=== PATIENT | female | born 1965 | race Caucasian/White ===

== ENCOUNTER 2023-01-11 11:42 | Emergency (ER) | payer SELFPAY ==
[2023-01-11] MEDS ORDERED: Sodium Chloride 0.9% 10 ML Syringe FLUSH PRN (12:08)
[2023-01-11] MEDS ORDERED: Naloxone 0.4 MG/ML SDV IVPUSH PRN (12:19)
[2023-01-11 12:24] LABS: BASOPHILS ABSOLUTE AUTO 0.01 10^3/uL (0.00-0.10); BASOPHILS PERCENT AUTO 0.2 % (0.0-1.0); EOSINOPHILS ABSOLUTE AUTO 0.23 10^3/uL (0.10-0.30); EOSINOPHILS PERCENT AUTO 3.7 % (1.0-3.0); HEMOGLOBIN 10.7 g/dL (12.0-16.0); LYMPHOCYTES ABSOLUTE AUTO 2.47 10^3/uL (1.00-4.00); LYMPHOCYTES PERCENT AUTO 39.7 % (20.0-40.0); MEAN CORPUSCULAR HEMOGLOBIN 31.1 pg (27.0-31.0); MEAN CORPUSCULAR HGB CONC 31.5 g/dL (32.0-36.0); MEAN CORPUSCULAR VOLUME 98.8 fL (82.0-92.0); MEAN PLATELET VOLUME 8.4 fL (7.4-10.4); MONOCYTES ABSOLUTE AUTO 0.64 10^3/uL (0.10-0.80); MONOCYTES PERCENT AUTO 10.3 % (2.0-8.0); NEUTROPHILS ABSOLUTE AUTO 2.87 10^3/uL (2.50-7.00); NEUTROPHILS PERCENT AUTO 46.1 % (50.0-70.0); PLATELET COUNT,PLT 511 10^3/uL (150-400); RED BLOOD CELL COUNT 3.44 10^6/uL (3.80-5.50); RED CELL DISTRIBUTION WIDTH 14.9 % (11.5-14.5); WHITE BLOOD CELL COUNT,WBC 6.22 10^3/uL (5.00-10.00)
[2023-01-11 12:40] LABS: ALANINE AMINOTRANSFERASE,ALT 13 U/L (14-63); ALBUMIN 3.24 g/dL (3.40-5.00); ALKALINE PHOSPHATASE 178 U/L (46-116); ANION GAP 12.7 mmol/L (5-15); ASPARTATE AMNIOTRANSFERASE,AST 10 U/L (15-37); BILIRUBIN TOTAL 0.3 mg/dL (0.2-1.0); BLOOD UREA NITROGEN,BUN 10 mg/dL (7-18); CALCIUM 8.6 mg/dL (8.7-10.3); CARBON DIOXIDE,CO2 27.6 mmol/L (21.0-32.0); CHLORIDE,CL 107 mmol/L (98-107); CREATININE 0.68 mg/dL (0.51-1.17); GLUCOSE RANDOM 91 mg/dL (70-140); POTASSIUM,K 4.3 mmol/L (3.5-5.1); PROTEIN TOTAL,TP 7.7 g/dL (6.4-8.2); SODIUM,NA 143 mmol/L (136-145)
[2023-01-11 12:41] LABS: ESTIMATED GFR 102 mL/min (>=60)
[2023-01-11] MEDS: HYDROmorphone 1 MG/ML Syringe IVPUSH ONE (12:52)
[2023-01-11] MEDS ORDERED: Sodium Chloride 0.9% 1,000 ML IV SCH (13:15)
[2023-01-11] MEDS: Ondansetron 4 MG/2 ML SDV IVPUSH ONE (13:24)
[2023-01-11] MEDS: Heparin Sodium 5,000 Units/ML Vial ONE (13:47)
[2023-01-11] MEDS: Heparin Sodium 5,000 Units/ML Vial IVPUSH ONE (13:54)
[2023-01-11] MEDS: Heparin Sodium/D5W 250 ML IV SCH (13:55)
== END 2023-01-11 14:47 ==
LOC: MERGE 11:42 → KA.ED 11:42
DX: M79.89 Other specified soft tissue disorders (principal); R79.89 Other specified abnormal findings of blood chemistry; Z88.0 Allergy status to penicillin; Z88.5 Allergy status to narcotic agent; Z88.6 Allergy status to analgesic agent
CPT/HCPCS: 36415; 80053; 85025; 85379; 85730; 96365; 96375; 99284; 99284-25; J1170; J1644; J2405